=== PATIENT | male | born 1975 | race Caucasian/White ===

== ENCOUNTER 2018-06-25 17:00 | Emergency (ER) | payer SELFPAY ==
[2018-06-25] MEDS ORDERED: clonazePAM 1 MG TAB PO SCH (18:15)
[2018-06-25] MEDS ORDERED: Adacel (T-DAP) 0.5 ML SYRINGE ONE (18:26)
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
== END 2018-06-25 18:45 | disposition home or self-care (01) ==
LOC: BURERS 17:00
DX: S01.511A Laceration without foreign body of lip, initial encounter (principal); N40.0 Benign prostatic hyperplasia without lower urinary tract symptoms; F41.9 Anxiety disorder, unspecified; Z87.891 Personal history of nicotine dependence; Y04.0XXA Assault by unarmed brawl or fight, initial encounter
CPT/HCPCS: 12013; 70486; 90471; 90715